=== PATIENT | male | born 1960 | race African-American/Black ===

== ENCOUNTER 2024-08-23 12:29 | Inpatient (IN) | payer MEDICAID, OTHER ==
[~2024-08-23] VITALS: Ht 172.7 cm; Wt 103.9 kg
[~2024-08-23 12:29] MED LIST: AMLO1TAB23 PO; ASPI81CH59 PO; CARV25TA55 PO; DAPA1TAB4 PO; FERR325T24 PO; LEVE500T40 PO; LOSA-535 PO; METF-370 PO; RIV20T PO; ROSU10TA16 PO; SENN8.6T83 PO
--- NOTE | 2024-08-23 14:13 | ED.PDOC ---
History of Present Illness HPI Comments 64 year old male ISHMAEL presents to the ED with chief complaint of possible skin infection. EMS reports patient is coming from home where family states patient's G-Tube site looks red and has been having drainage coming from it for the past few days. EMS relays patient has deficits to speech and movement from a previous CVA, feeding from his G-Tube. EMS states patient's glucose level was noted to be 267 and family state patient's glucose has been running high lately which is not normal for him. EMS notes family called patient's PCP who advised the to take the patient to the ED due to a possible infection. Patient denies any chest pain, fever, chills, dizziness, headache, or SOB. Chief Complaint: Wound Check Time Seen by MD: 14:10 Reviewed Notes: Nurses Notes, Salesperson Sewing Machines Notes, Medications, Allergies Allergies: Coded Allergies: NO KNOWN ALLERGIES (Unverified , 08/23/24) Information Source: Patient, Emergency Med Personnel Mode of Arrival: EMS Severity: Moderate Timing: Days Duration: Since onset Prehospital treatment: None Associated signs and symptoms Infected wound Past Medical History PAST MEDICAL HISTORY: CVA, DM, HTN, Seizures Surgical History (Other): G-Tube Family History Family History: Reviewed,noncontributory to illness Social History Smoker: Non-Smoker Alcohol: Denies ETOH Use Drugs: Denies Drug Use Lives In: Home Constitutional: denies: chills, diaphoresis, fatigue, fever, malaise, sweats, weakness, others EENTM: denies: blurred vision, double vision, ear bleeding, ear discharge, ear drainage, ear pain, ear ringing, eye pain, eye redness, hearing loss, mouth pain, mouth swelling, nasal discharge, nose bleeding, nose congestion, nose pain, photophobia, tearing, throat pain, throat swelling, voice changes, others Respiratory: denies: cough, hemoptysis, orthopnea, SOB at rest, shortness of breath, SOB with excertion, stridor, wheezing, others Cardiovascular: denies: chest pain, dizzy spells, diaphoresis, Dyspnea on ex ertion, edema, irregular heart beat, left arm pain, lightheadedness, palpitations, PND, syncope, others Gastrointestinal: denies: abdomen distended, abdominal pain, blood streaked bowels, constipated, diarrhea, dysphagia, difficulty swallowing, hematemesis, melena, nausea, poor appetite, poor fluid intake, rectal bleeding, rectal pain, vomiting, others Genitourinary: denies: burning, dysuria, flank pain, frequency, hematuria, incontinence, penile discharge, penile sore, pain, testicle pain, testicle swelling, urgency, others Neurological: denies: dizziness, fainting, headache, left sided numbness, left sided weakness, numbness, paresthesia, pre-existing deficit, right sided numbness, right sided weakness, seizure, speech problems, tingling, tremors, weakness, others Musculoskeletal: denies: back pain, gout, joint pain, joint swelling, muscle pain, muscle stiffness, neck pain, others Integumetry: reports: others (Redness and drainage to G-Tube site); denies: bruises, change in color, change in hair/nails, dryness, laceration, lesions, lumps, rash, wounds Allergic/Immunocompromised: denies: Difficulty Healing, Frequent Infections, Hives, Itching, others Hematologic/Lymphatic: denies: anemia, blood clots, easy bleeding, easy bruising, swollen glands, others Endocrine: denies: excessive hunger, excessive sweating, excessive thirst, excessive urination, flushing, intolerance to cold, intolerance to heat, unexplained weight gain, unexplained weight loss, others Psychiatric: denies: anxiety, bipolar disorder, depression, hopeless, panic disorder, schizophrenia, sleepless, suicidal, others All Other Systems: Reviewed and Negative Physical Exam General Appearance: Obese, Other (The patient was nonverbal) HEENT: Normal ENT Inspection, Pharynx Normal, TMs Normal Neck: Full Range of Motion, Non-Tender, Normal, Normal Inspection Respiratory: Chest Non-Tender, Lungs Clear, No Accessory Muscle Use, No Respiratory Distress, Normal Breath Sounds Cardiovascular: No Edema, No JVD, No Murmur, No Gallop, Normal Peripheral Pulses, Regular Rate/Rhythm Breast Exam: Deferred Gastrointestinal: No Organomegaly, No Pulsatile Mass, Normal Bowel Sounds, Soft, Other (G-tube in place with redness and some drainage around the area) Genitalia: Deferred Pelvic: Deferred Rectal: Deferred Extremities: No calf tenderness, Normal capillary refill, No pedal edema Musculoskeletal : Apperance: Normal Neurologic: magazine repairer II-XII nml as Tested, Motor Weakness, Other (The patient is nonverbal which may be his baseline) Cerebellar Function: Unable to Test Reflexes: Normal Skin: Dry, Normal Color, Warm Lymphatic: No Adenopathy Was a procedure done? Was a procedure done?: No Differential Dx Considerations may include: Generalized weakness, sepsis, dehydration X-Ray, Labs, Meds, VS Vital Signs Date Time Temp Pulse Resp B/P (MAP) Pulse Ox O2 Delivery O2 Flow Rate FiO2 08/23/24 14:00 98.3 78 18 137/63 (87) 97 98.3 08/23/24 12:40 98.8 90 18 132/75 (94) 97 Lab Test 08/23/24 15:03 Range/Units White Blood Count 9.6 4.4-10.8 10^3/uL Red Blood Count 3.98 L 4.5-5.90 10^6/uL Hemoglobin 12.5 L 13.5-17.5 g/dL Hematocrit 37.5 L 41.0-53.0 % Mean Corpuscular Volume 94.2 80.0-100.0 fL Mean Corpuscular Hemoglobin 31.5 28.0-32.0 pg Mean Corpuscular Hemoglobin Concent 33.4 32.0-36.0 g/dL Red Cell Distribution Width 13.4 11.8-14.3 % Platelet Count 340 140-450 10^3/uL Mean Platelet Volume 8.0 6.9-10.8 fL Neutrophils (%) (Auto) 75.7 37.0-80.0 % Lymphocytes (%) (Auto) 12.5 10.0-50.0 % Monocytes (%) (Auto) 10.6 0.0-12.0 % Eosinophils (%) (Auto) 0.7 0.0-7.0 % Basophils (%) (Auto) 0.5 0.0-2.0 % Neutrophils # (Auto) 7.2 1.6-8.6 10 ^3/uL Lymphocytes # (Auto) 1.2 0.4-5.4 10 ^3/uL Monocytes # (Auto) 1.0 0-1.3 10 ^3/uL Eosinophils # (Auto) 0.1 0-0.8 10 ^3/uL Basophils # (Auto) 0 0-0.2 10 ^3/uL Nucleated Red Blood Cells 0.1 % Sodium Level 134 L 136-145 mmol/L Potassium Level 5.2 H 3.5-5.1 mmol/L Chloride Level 103 98-107 mmol/L Carbon Dioxide Level 23 20-31 mmol/L Anion Gap 8 5-15 Blood Urea Nitrogen 24 H 9-23 mg/dL Creatinine 1.08 0.700-1.30 mg/dL Glomerular Filtration Rate Calc 78 >90 mL/min BUN/Creatinine Ratio 22.2 H 10.0-20.0 Serum Glucose 253 H 74-106 mg/dL Lactic Acid Level 1.7 0.4-2.0 mmol/L Calcium Level 9.5 8.7-10.4 mg/dL The patient's CBC is within normal limits The chemistry panel shows hyperkalemia at 5.2 The patient was hyperglycemic at 253 Lactic acid levels within normal range We did do blood cultures as well as wound cultures The patient was being admitted with a diagnosis of an infected wound site The wound seems to be fairly infective with tenderness in the area There is a concern of possible abscess as well Time of 1ST Reevaluation: 16:03 Reevaluation 1ST: Unchanged Patient Education/Counseling: Diagnosis, Treatment, Prognosis Family Education/Counseling: No Family Present Departure 1 Departure Time of Disposition: 16:02 Impression: Primary Impression: Skin infection at gastrostomy tube site Disposition: 09 ADMITTED INPATIENT Admit to: Med Surg Condition: Fair Critical Care Note Critical Care Time?: No Stability Stability form required: Yes Unstable for transfer: ED Physician Assesment (Clinical assesment) Heart Score Heart Score: Heart Score Response (Comments) Value History N/A 0 EKG N/A 0 Age N/A 0 Risk Factors N/A 0 Troponin N/A 0 Total 0 I personally scribed for JULIO PINEDO MD ([email or web address]) on 08/23/24 at 14:13. Electronically submitted by Arjnu Parsons ([email or web address]). JULIO PINEDO MD Aug 23, 2024 14:13
[2024-08-23 15:33] LABS: Basophils # (auto) 0 10 ^3/uL (0-0.2); Basophils % (auto) 0.5 % (0.0-2.0); Eosinophils # (auto) 0.1 10 ^3/uL (0-0.8); Eosinophils % (auto) 0.7 % (0.0-7.0); Hematocrit 37.5 % (41.0-53.0); Hemoglobin 12.5 g/dL (13.5-17.5); Lymphocytes # (auto) 1.2 10 ^3/uL (0.4-5.4); Lymphocytes % (auto) 12.5 % (10.0-50.0); Mean Corpuscular Hemoglobin 31.5 pg (28.0-32.0); Mean Corpuscular Hgb Conc. 33.4 g/dL (32.0-36.0); Mean Corpuscular Volume 94.2 fL (80.0-100.0); Monocytes % (auto) 10.6 % (0.0-12.0); Neutrophils # (auto) 7.2 10 ^3/uL (1.6-8.6); Neutrophils % (auto) 75.7 % (37.0-80.0); Nucleated Red Blood Cells % 0.1 %; Platelet Count (auto) 340 10^3/uL (140-450); Red Blood Cells 3.98 10^6/uL (4.5-5.90); Red Cell Distribution Width 13.4 % (11.8-14.3); White Blood Cell 9.6 10^3/uL (4.4-10.8)
[2024-08-23 15:43] LABS: Chloride 103 mmol/L (98-107)
[2024-08-23 15:44] LABS: Anion Gap 8 (5-15); Carbon Dioxide 23 mmol/L (20-31)
[2024-08-23 15:45] LABS: Calcium 9.5 mg/dL (8.7-10.4)
[2024-08-23 15:49] LABS: BUN/Creatinine Ratio 22.2 (10.0-20.0)
[2024-08-23 15:51] LABS: Blood Urea Nitrogen 24 mg/dL (9-23); Glucose 253 mg/dL (74-106); Potassium 5.2 mmol/L (3.5-5.1); Sodium 134 mmol/L (136-145)
[2024-08-23] MEDS ORDERED: DOCUSATE SOD 100 MG CAP PO PRN (18:00)
[2024-08-23] MEDS ORDERED: DEXTROSE (50%) 50ML SYRG IV PRN (18:00)
[2024-08-23] MEDS ORDERED: ONDANSETRON HCL 4 MG/2 ML VIAL IV PRN (18:00)
[2024-08-23] MEDS ORDERED: HYDROcodone-ACET 5/325MG TAB PO PRN (18:00)
[2024-08-23] MEDS: SODIUM CHLORIDE 0.9% 1,000 ML IV SCH (18:31)
[2024-08-23] MEDS: SODIUM ZIRCONIUM CYCL 10 GM PAK PO ONE (18:33)
[2024-08-23] MEDS ORDERED: NITROGLYCERIN 0.4 MG SL TAB SL PRN (19:00)
[2024-08-23] MEDS ORDERED: MORPHINE SULFATE INJ 2 MG/ml SYRG IV PRN (19:00)
--- NOTE | 2024-08-23 19:01 | DVHHP2 ---
History of Present Illness Reason for Visit: Skin infection at gastrostomy tube site History of Present Illness The patient is a 64-year-old male with past medical history of CVA with deficits, DM, seizures, and hypertension who presented to [facility] ED for evaluation of skin infection at G-tube site. Daughter reports she notice patient G-tube site looks rate and has been draining for the past few days, getting worse that EMS were called. Patient was seen and evaluated in the ED, laboratory data shows WBC 9.6, platelets 340, sodium 134, potassium 5.2, BUN 24, creatinine 1.08, GFR 78, glucose 253, blood pressure 154/85, heart rate 80, temperature 98.3 F, O2 saturation 98% on room air. Patient was started on IV antibiotic regimen Zosyn, please see medication orders section in the computer. On my assessment, patient denies chest pain, no headache, no dizziness, no diaphoresis, no shortness of breath, no nausea, no vomiting, no fever, no chil ls. Patient was admitted for further evaluation and medical management. Past Medical History CVA, DM, HTN, Seizures Past Surgical History G-Tube Family History Reviewed, noncontributory to the management of this case. Past Social History The patient lives at home, denies smoking, alcohol or illicit drugs abuse. Review of Systems Constitutional: Yes: Weakness; No: Fever, Chills, Sweats, Malaise, Other Eyes: No: Pain, Vision change, Conjunctivae inflammation, Eyelid inflammation, Other, Redness ENT: No: Ear pain, Ear discharge, Nose pain, Nose discharge, Nose congestion, Mouth pain, Mouth swelling, Throat pain, Throat swelling, Other Respiratory: No: Cough, Dry, Shortness of breath, SOB with excertion, Wheezing, Hemoptysis, Pleuritic Pain, Sputum, Wheezing, Other Cardiovascular: No: Chest Pain, Palpitations, Orthopnea, Paroxysmal Noc. Dyspnea, Edema, Lt Headedness, Other Gastrointestinal: No: Nausea, Vomiting, Abdominal Pain, Diarrhea, Constipation, Melena, Hematochezia, Other Genitourinary: No Dysuria, No Frequency, No Incontinence, No Hematuria, No Retention, No Other Musculoskeletal: other (Contractures); No: neck pain, shoulder pain, arm pain, back pain, hand pain, leg pain, foot pain Skin: Other (Redness and drainage to G-Tube site.); No: Rash, Lesions, Jaundice, Bruising Neurological: Weakness, Seizures (History); No: Numbness, Incoordination, Change in speech, Confusion, Other Allergies: Coded Allergies: NO KNOWN ALLERGIES (Unverified , 08/23/24) Medications Current Medications Medications Dose Ordered Sig/Antwon Route Start Time Stop Time Status Last Admin Dose Admin Atorvastatin Calcium 10 mg HS PO 08/23/24 22:00 Aspirin 81 mg DAILY PO 08/24/24 10:00 Levetiracetam 100 ml @ 400 mls/hr BID IV 08/23/24 22:00 Carvedilol 3.125 mg Q12HR PO 08/23/24 22:00 Diagnostic Test (Pha) 1 strip ACHS 08/23/24 22:00 Insulin Human Regular HS SC 08/23/24 22:00 Insulin Human Regular AC SC 08/24/24 07:00 Dextrose 50 ml UD PRN IV 08/23/24 18:00 Sodium Chloride 1,000 ml @ 60 mls/hr [id number] IV 08/23/24 18:00 Acetaminophen/ Hydrocodone Bitart 1 tab Q4HP PRN PO 08/23/24 18:00 Ondansetron HCl 4 mg Q4HP PRN IV 08/23/24 18:00 Docusate Sodium 100 mg BIDPRN PRN PO 08/23/24 18:00 Enoxaparin Sodium 40 mg DAILY SC 08/24/24 10:00 Acetaminophen 650 mg Q6HP PRN PO 08/23/24 18:00 Exam Vital Signs Vital Signs Date Time Temp Pulse Resp B/P (MAP) Pulse Ox O2 Delivery O2 Flow Rate FiO2 08/23/24 17:00 80 18 154/85 (108) 100 08/23/24 14:00 98.3 98.3 General Appearance: Alert, Cooperative, No acute distress, Other (Oriented x2) HEENT: Atraumatic, PERRLA, EOMI, Mucous membr. moist/pink Respiratory: Clear to auscultation, Normal air movement Cardiovascular: Regular rate, Normal S1, Normal S2, No murmurs Abdominal: Normal bowel sounds, Soft, No tenderness, No hepatospenomegaly, No masses, Other (G-tube is in place.) Extremities: Other (Contractures) Skin: No rashes, No breakdown, No significant lesion Neuro: Normal tone, Other (Generalized weakness) Psych/Mental Status: Mental status NL, Mood NL Labs/Xrays Labs Test 08/23/24 15:03 Range/Units White Blood Count 9.6 4.4-10.8 10^3/uL Red Blood Count 3.98 L 4.5-5.90 10^6/uL Hemoglobin 12.5 L 13.5-17.5 g/dL Hematocrit 37.5 L 41.0-53.0 % Mean Corpuscular Volume 94.2 80.0-100.0 fL Mean Corpuscular Hemoglobin 31.5 28.0-32.0 pg Mean Corpuscular Hemoglobin Concent 33.4 32.0-36.0 g/dL Red Cell Distribution Width 13.4 11.8-14.3 % Platelet Count 340 140-450 10^3/uL Mean Platelet Volume 8.0 6.9-10.8 fL Neutrophils (%) (Auto) 75.7 37.0-80.0 % Lymphocytes (%) (Auto) 12.5 10.0-50.0 % Monocytes (%) (Auto) 10.6 0.0-12.0 % Eosinophils (%) (Auto) 0.7 0.0-7.0 % Basophils (%) (Auto) 0.5 0.0-2.0 % Neutrophils # (Auto) 7.2 1.6-8.6 10 ^3/uL Lymphocytes # (Auto) 1.2 0.4-5.4 10 ^3/uL Monocytes # (Auto) 1.0 0-1.3 10 ^3/uL Eosinophils # (Auto) 0.1 0-0.8 10 ^3/uL Basophils # (Auto) 0 0-0.2 10 ^3/uL Nucleated Red Blood Cells 0.1 % Sodium Level 134 L 136-145 mmol/L Potassium Level 5.2 H 3.5-5.1 mmol/L Chloride Level 103 98-107 mmol/L Carbon Dioxide Level 23 20-31 mmol/L Anion Gap 8 5-15 Blood Urea Nitrogen 24 H 9-23 mg/dL Creatinine 1.08 0.700-1.30 mg/dL Glomerular Filtration Rate Calc 78 >90 mL/min BUN/Creatinine Ratio 22.2 H 10.0-20.0 Serum Glucose 253 H 74-106 mg/dL Lactic Acid Level 1.7 0.4-2.0 mmol/L Calcium Level 9.5 8.7-10.4 mg/dL Assessment/Plan Assessment/Plan Generalized weakness Skin infection at gastrostomy tube site Plan 1. Admit to med surge unit 2. Breathing treatment 3. Pain control management 4. IV antibiotic management 5. Management of fluids and electrolytes 6. Consultation for hospitalist/wound care 7. Diagnostic test chest x-ray 8. DVT prophylaxis-on aspirin 9. Repeat labs CBC, CMP in a.m. 10. Home medication reviewed and reconciled 11. Continue with current medical management 12. Treatment plan discussed with patient and RN. Patient verbalized underst anding. Plan discussed with: Patient, Other (RN) My Orders Orders - JOHANNE FULTON DNP Procedure Category Date Status Time Atorvastatin (Lipitor) PHA 08/23/24 In Process 22:00 Aspirin Tablet PHA 08/24/24 In Process 10:00 Levetiracetam 500 PHA 08/23/24 In Process Mg/100ml (Levetiraceta 22:00 Carvedilol Tablet PHA 08/23/24 In Process (Coreg Tablet) 22:00 Consistent DIET 08/23/24 Transmitted Carb(Ccho)Diabetes Dinner Glucose Blood PHA 08/23/24 In Process (Accu-Chek Comfort 22:00 Insulin R (Human) PHA 08/23/24 In Process (Insulin R) 22:00 Insulin R (Human) PHA 08/24/24 In Process (Insulin R) 07:00 Dextrose 50% Syringe PHA 08/23/24 In Process 18:00 Allergies RASHARD 08/23/24 In Process 17:49 Code Status CODE 08/23/24 Transmitted 17:49 Sodium Chloride 0.9% PHA 08/23/24 In Process 18:00 Oxygen Per Hour RT 08/23/24 Transmitted 17:49 Hydrocodone-Acet PHA 08/23/24 In Process 5/325mg Tab ([place] 18:00 Ondansetron Hcl PHA 08/23/24 In Process (Zofran) 18:00 Docusate Sodium PHA 08/23/24 In Process Capsule (Colace 18:00 Enoxaparin Sodium PHA 08/24/24 In Process (Lovenox) 10:00 Fall Risk Precautions RASHARD 08/23/[address] 17:49 Complete Blood Count LAB 08/24/24 Verified 04:00 Comprehensive LAB 08/24/24 Verified Metabolic Panel 04:00 Condition: Serious [facility] 08/23/24 In Process 17:49 Acetaminophen Tablet [facility] 08/23/24 In Process (Tylenol Tablet) 18:[address] [facility] 08/23/24 In Process Compression Device Admit ADMIT 08/23/24 Transmitted 18:58 Nitroglycerin [facility] 08/23/24 Transmitted Sublingual (Ntrostat 19:00 Morphine Sulfate [facility] 08/23/24 Transmitted Injection 19:[address] Md Of Changes [facility] 08/23/24 Transmitted From Base 18:58 Operations Officer [address] [facility] 08/23/24 Transmitted 24 Hours 18:[address] [facility] 08/23/24 Transmitted Protocol 18:58 Oxygen By Nasal RT 08/23/24 Transmitted Cannula 18:58 Problem List: (1) Generalized weakness (2) Skin infection at gastrostomy tube site Date of Service: Aug 23, 2024 Billing Provider: JOHANNE FULTON DNP Common Visit Codes: [id number] INP/OBS CARE (HIGH) JOHANNE FULTON DNP Aug 23, 2024 19:00
[2024-08-23] MEDS ORDERED: levETIRAcetam 500 mg/100ml 100 ML IV SCH (22:00)
[2024-08-23] MEDS: ACCU-CHEK COMFORT CURVE STRIP VI SCH (23:26)
[2024-08-23] MEDS: InsuLIN REG 1unit/0.01ml Soln (100units/ml) SC SCH (23:28)
[2024-08-24] VITALS (7 sets, daily range): BP systolic 120–140; BP diastolic 69–78; PULSE 85–100; RESP 16–20; TEMP 97.9–98.8; O2SAT 95–97
[2024-08-24] MEDS: PIPERACILLIN-TAZOB 3.375GM 100 ML IV SCH (00:05)
[2024-08-24] MEDS: CARVEDILOL 3.125 MG TAB PO SCH (00:13)
[2024-08-24] MEDS: ATORVASTATIN 20 MG TAB PO SCH (00:14)
[2024-08-24] MEDS: levETIRAcetam 500 mg/100ml 100 ML IV SCH (01:50)
[2024-08-24] MEDS: InsuLIN REG 1unit/0.01ml Soln (100units/ml) SC SCH (06:40)
[2024-08-24 06:55] LABS: Basophils # (auto) 0 10 ^3/uL (0-0.2); Basophils % (auto) 0.3 % (0.0-2.0); Eosinophils # (auto) 0 10 ^3/uL (0-0.8); Eosinophils % (auto) 0.5 % (0.0-7.0); Hematocrit 38.2 % (41.0-53.0); Hemoglobin 12.8 g/dL (13.5-17.5); Lymphocytes # (auto) 1.3 10 ^3/uL (0.4-5.4); Lymphocytes % (auto) 14.4 % (10.0-50.0); Mean Corpuscular Hemoglobin 31.2 pg (28.0-32.0); Mean Corpuscular Hgb Conc. 33.5 g/dL (32.0-36.0); Monocytes # (auto) 0.9 10 ^3/uL (0-1.3); Monocytes % (auto) 10.7 % (0.0-12.0); Neutrophils # (auto) 6.5 10 ^3/uL (1.6-8.6); Neutrophils % (auto) 74.1 % (37.0-80.0); Nucleated Red Blood Cells % 0.1 %; Platelet Count (auto) 377 10^3/uL (140-450); Red Cell Distribution Width 13.6 % (11.8-14.3); White Blood Cell 8.7 10^3/uL (4.4-10.8)
[2024-08-24 07:08] LABS: Alanine Aminotransferase 28 U/L (7-40); Albumin 3.7 g/dL (3.2-4.8); Alkaline Phosphatase 91 U/L (46-116); Anion Gap 7 (5-15); Aspartate Aminotransferase 21 U/L (13-40); BUN/Creatinine Ratio 31.3 (10.0-20.0); Bilirubin, Total 0.4 mg/dL (0.2-1.0); Calcium 9.7 mg/dL (8.7-10.4); Carbon Dioxide 24 mmol/L (20-31); Chloride 104 mmol/L (98-107); Potassium 5.1 mmol/L (3.5-5.1)
[2024-08-24 07:12] LABS: Blood Urea Nitrogen 30 mg/dL (9-23); Glucose 238 mg/dL (74-106); Sodium 135 mmol/L (136-145)
[2024-08-24] MEDS ORDERED: ENOXAPARIN SOD 40 MG/0.4 ML SYRINGE SC SCH (10:00)
[2024-08-24] MEDS: CLOPIDOGREL BISULFATE 75 MG TAB PO SCH (10:09)
[2024-08-24] MEDS: ASPirin 81 mg TAB PO SCH (10:09)
--- NOTE | 2024-08-24 11:49 | DVHPN2 ---
Subjective The patient is seen and examined at bedside. No complaint today. Reviewed: Care Plan, H&P, Labs, Medications, Previous Orders Changes from previous H/P or p: No Changes Eyes: No Pain, No Vision change, No Conjunctivae inflammation, No Eyelid inflammation, No Other, No Redness ENT: No Ear pain, No Ear discharge, No Nose pain, No Nose discharge, No Nose congestion, No Mouth pain, No Mouth swelling, No Throat pain, No Throat swelling, No Other Cardiovascular: No Chest Pain, No Palpitations, No Orthopnea, No Paroxysmal Noc. Dyspnea, No Edema, No Lt Headedness, No Other Respiratory: No Cough, No Dry, No Shortness of breath, No SOB with excertion, No Wheezing, No Hemoptysis, No Pleuritic Pain, No Sputum, No Other Gastrointestinal: No Nausea, No Vomiting, No Abdominal Pain, No Diarrhea, No Constipation, No Melena, No Hematochezia, No Other Genitourinary: No Dysuria, No Frequency, No Incontinence, No Hematuria, No Retention, No Other Musculoskeletal: other (Contractures); No neck pain, No shoulder pain, No arm pain, No back pain, No hand pain, No leg pain, No foot pain Skin: No Rash, No Lesions, No Jaundice, No Bruising; Other (Redness and drainage to G-Tube site.) Objective Vitals Vital Signs Date Time Temp Pulse Resp B/P (MAP) Pulse Ox O2 Delivery O2 Flow Rate FiO2 08/24/24 10:08 88 131/70 08/24/24 09:00 98.8 16 95 98.8 Intake/Output Intake and Output 08/24/24 07:00 Intake Total 100 ml Balance 100 ml Intake Oral 0 ml IV Total 100 ml # Voids 3 General Appearance: Alert, No acute distress HEENT: Atraumatic, PERRLA, EOMI, Mucous membr. moist/pink Neck: Supple Lungs: Clear to auscultation, Normal air movement Cardiovascular: Regular rate, Normal S1, Normal S2, No murmurs, Gallops, Rubs Abdomen: Normal bowel sounds, Soft, No tenderness Neuro: Cranial nerves 3-12 NL Psych/Mental Status: Mental status NL Medications Current Medications Medications Dose Ordered Sig/Antwon Route Start Time Stop Time Status Last Admin Dose Admin Atorvastatin Calcium 10 mg HS PO 08/23/24 22:00 08/24/24 00:14 10 MG Aspirin 81 mg DAILY PO 08/24/24 10:00 08/24/24 10:09 81 MG Carvedilol 3.125 mg Q12HR PO 08/23/24 22:00 08/24/24 10:08 3.125 MG Diagnostic Test (Pha) 1 strip ACHS 08/23/24 22:00 08/24/24 06:36 1 STRIP Insulin Human Regular HS SC 08/23/24 22:00 08/23/24 23:28 8 UNITS Insulin Human Regular AC SC 08/24/24 07:00 08/24/24 06:40 6 UNITS Dextrose 50 ml UD PRN IV 08/23/24 18:00 Sodium Chloride 1,000 ml @ 60 mls/hr [id number] IV 08/23/24 18:00 Acetaminophen/ Hydrocodone Bitart 1 tab Q4HP PRN PO 08/23/24 18:00 Ondansetron HCl 4 mg Q4HP PRN IV 08/23/24 18:00 Docusate Sodium 100 mg BIDPRN PRN PO 08/23/24 18:00 Acetaminophen 650 mg Q6HP PRN PO 08/23/24 18:00 Nitroglycerin 0.4 mg Q5MINP PRN SL 08/23/24 19:00 Morphine Sulfate 2 mg Q30M PRN IV 08/23/24 19:00 Piperacillin Sod/ Tazobactam Sod 100 ml @ 25 mls/hr Q8HR IV 08/23/24 22:00 08/24/24 06:45 25 MLS/HR Clopidogrel Bisulfate 75 mg DAILY PO 08/24/24 10:00 08/24/24 10:09 75 MG Levetiracetam 100 ml @ 400 mls/hr BID IV 08/24/24 01:34 08/24/24 10:09 400 MLS/HR Laboratory Results Laboratory Tests 08/24/24 06:10 Chemistry Test 08/23/24 15:03 08/24/24 06:10 Calcium Level 9.5 mg/dL (8.7-10.4) 9.7 mg/dL (8.7-10.4) Albumin 3.7 g/dL (3.2-4.8) Total Protein 7.0 g/dL (5.7-8.2) LFT Test 08/24/24 06:10 Alanine Aminotransferase (ALT) 28 U/L (7-40) Alkaline Phosphatase 91 U/L (46-116) Aspartate Amino Transferase (AST) 21 U/L (13-40) Total Bilirubin 0.4 mg/dL (0.2-1.0) Labs and/or images reviewed: Labs reviewed by me Assessment/Plan Assessment/Plan Generalized weakness Cellulitis at gastrostomy tube site Continue current management. Continue IV antibiotic. Will resume isosourse TF. This medical document was created using an electronic medical record system with [employer] computerized dictation system. Although this document has been carefully reviewed, there may still be some phonetic and typographical errors. These areas are purely typographical due to imperfections of the software programs, and do not reflect any compromise in the patient's medical care. Plan discussed with: Other (RN) Date of Service: Aug 24, 2024 Billing Provider: ADRIANNA TRAVIS MD Common Visit Codes: [id number] INP/OBS CARE(HIGH) ADRIANNA TRAVIS MD Aug 24, 2024 11:49
[2024-08-24] MEDS ORDERED: HYDROcodone-ACET 5/325MG TAB GT PRN (21:15)
[2024-08-24] MEDS: CARVEDILOL 3.125 MG TAB GT SCH (22:00)
[2024-08-24] MEDS: ATORVASTATIN 20 MG TAB GT SCH (23:02)
[2024-08-25 01:00] VITALS: BP 138/79; PULSE 102; RESP 16; TEMP 98.2; O2SAT 97
[2024-08-25 05:00] VITALS: BP 123/68; PULSE 109; RESP 18; O2SAT 92
[2024-08-25] MEDS: Glucerna Carbsteady SHAKE Vanilla 8oz GT SCH (08:00)
--- NOTE | 2024-08-25 08:24 | DVHPN2 ---
Subjective The patient is seen and examined at bedside. No complaint today. Per nursing reports that is some black element come out of the G-tube, questionable mold Reviewed: Care Plan, H&P, Labs, Medications, Previous Orders Changes from previous H/P or p: No Changes Eyes: No Pain, No Vision change, No Conjunctivae inflammation, No Eyelid inflammation, No Other, No Redness ENT: No Ear pain, No Ear discharge, No Nose pain, No Nose discharge, No Nose congestion, No Mouth pain, No Mouth swelling, No Throat pain, No Throat swelling, No Other Cardiovascular: No Chest Pain, No Palpitations, No Orthopnea, No Paroxysmal Noc. Dyspnea, No Edema, No Lt Headedness, No Other Respiratory: No Cough, No Dry, No Shortness of breath, No SOB with excertion, No Wheezing, No Hemoptysis, No Pleuritic Pain, No Sputum, No Other Gastrointestinal: No Nausea, No Vomiting, No Abdominal Pain, No Diarrhea, No Constipation, No Melena, No Hematochezia, No Other Genitourinary: No Dysuria, No Frequency, No Incontinence, No Hematuria, No Retention, No Other Musculoskeletal: other (Contractures); No neck pain, No shoulder pain, No arm pain, No back pain, No hand pain, No leg pain, No foot pain Skin: No Rash, No Lesions, No Jaundice, No Bruising; Other (Redness and drainage to G-Tube site.) Objective Vitals Vital Signs Date Time Temp Pulse Resp B/P (MAP) Pulse Ox O2 Delivery O2 Flow Rate FiO2 08/25/24 05:00 109 18 123/68 (86) 92 08/25/24 01:00 98.2 98.2 08/24/24 20:00 Room Air* 0 21 Intake/Output Intake and Output 08/25/24 07:00 Intake Total 920 ml Output Total 1 ml Balance 919 ml Intake Oral 0 ml IV Total 920 ml Output Urine Total 1 ml # Voids 3 General Appearance: Alert, No acute distress HEENT: Atraumatic, PERRLA, EOMI, Mucous membr. moist/pink Neck: Supple Lungs: Clear to auscultation, Normal air movement Cardiovascular: Regular rate, Normal S1, Normal S2, No murmurs, Gallops, Rubs Abdomen: Normal bowel sounds, Soft, No tenderness Neuro: Cranial nerves 3-12 NL Psych/Mental Status: Mental status NL Medications Current Medications Medications Dose Ordered Sig/Antwon Route Start Time Stop Time Status Last Admin Dose Admin Diagnostic Test (Pha) 1 strip ACHS 08/23/24 22:00 08/25/24 06:42 1 STRIP Insulin Human Regular HS SC 08/23/24 22:00 08/23/24 23:28 8 UNITS Insulin Human Regular AC SC 08/24/24 07:00 08/24/24 06:40 6 UNITS Dextrose 50 ml UD PRN IV 08/23/24 18:00 Sodium Chloride 1,000 ml @ 60 mls/hr [id number] IV 08/23/24 18:00 08/25/24 03:20 60 MLS/HR Ondansetron HCl 4 mg Q4HP PRN IV 08/23/24 18:00 Docusate Sodium 100 mg BIDPRN PRN PO 08/23/24 18:00 Acetaminophen 650 mg Q6HP PRN PO 08/23/24 18:00 Nitroglycerin 0.4 mg Q5MINP PRN SL 08/23/24 19:00 Morphine Sulfate 2 mg Q30M PRN IV 08/23/24 19:00 Piperacillin Sod/ Tazobactam Sod 100 ml @ 25 mls/hr Q8HR IV 08/23/24 22:00 08/25/24 05:39 25 MLS/HR Levetiracetam 100 ml @ 400 mls/hr BID IV 08/24/24 01:34 08/24/24 23:02 400 MLS/HR Enteral Nutritional Formula 240 ml TIDWM GT 08/25/24 08:00 Aspirin 81 mg DAILY GT 08/25/24 10:00 Atorvastatin Calcium 10 mg HS GT 08/24/24 22:00 08/24/24 23:02 10 MG Carvedilol 3.125 mg Q12HR GT 08/24/24 22:00 08/24/24 22:00 3.125 MG Clopidogrel Bisulfate 75 mg DAILY GT 08/25/24 10:00 Acetaminophen/ Hydrocodone Bitart 1 tab Q4HP PRN GT 08/24/24 21:15 Laboratory Results Laboratory Tests 08/24/24 06:10 Microbiology Microbiology Date/Time Source Procedure Growth Status 08/23/24 15:03 Blood Blood Culture - Preliminary NO GROWTH AFTER 24 HOURS OF INCUBATION. Resulted Labs and/or images reviewed: Labs reviewed by me Assessment/Plan Assessment/Plan Generalized weakness Cellulitis at gastrostomy tube site with ? mold. Continue current management. Continue IV antibiotic. Will resume isosourse TF. I will put in a GI consulted to evaluate the G-tube. We will culture the wound. Continuing wound care. This medical document was created using an electronic medical record system with [employer] direct computerized dictation system. Although this document has been carefully reviewed, there may still be some phonetic and typographical errors. These areas are purely typographical due to imperfections of the software programs, and do not reflect any compromise in the patient's medical care. Plan discussed with: Other (RN) My Orders Orders - ADRIANNA TRAVIS MD Procedure Category Date Status Time Wound Culture W/ Gs SUPRIYA 08/24/24 Logged 13:14 Cleanse Wound With RASHARD 08/24/24 In Process Wound Clean 10:20 Apply Barrier Cream RASHARD 08/24/24 In Process 13:16 * Dietary Consult CONS 08/24/24 Transmitted 13:18 Date of Service: Aug 25, 2024 Billing Provider: ADRIANNA TRAVIS MD Common Visit Codes: [id number] INP/OBS CARE(HIGH) ADRIANNA TRAVIS MD Aug 25, 2024 08:24
[2024-08-25 09:00] VITALS: BP 154/72; PULSE 112; RESP 18; O2SAT 94
[2024-08-25] MEDS: ASPirin 81 mg TAB GT SCH (09:36)
[2024-08-25] MEDS: CLOPIDOGREL BISULFATE 75 MG TAB GT SCH (09:37)
[2024-08-25 13:00] VITALS: BP 134/75; PULSE 103; RESP 18; O2SAT 93
[2024-08-25] MEDS: ACETAMINOPHEN 325 MG TAB PO PRN (14:17)
[2024-08-25 17:00] VITALS: BP_SYST 104; BP_SYST 133; BP_DIAS 63; BP_DIAS 69; PULSE 102; PULSE 74; RESP 18; TEMP 98.1; O2SAT 94; O2SAT 97
[2024-08-25 21:00] VITALS: BP 138/70; PULSE 100; RESP 18; TEMP 98.2; O2SAT 98
[2024-08-26 01:00] VITALS: BP 134/82; PULSE 101; RESP 18; O2SAT 98
[2024-08-26 05:00] VITALS: BP 148/73; PULSE 107; RESP 18; O2SAT 98
[2024-08-26 09:00] VITALS: BP 155/71; PULSE 78; RESP 16; TEMP 98.4; O2SAT 98
[2024-08-26 09:13] LABS: Anion Gap 9 (5-15); Carbon Dioxide 22 mmol/L (20-31); Potassium 4.4 mmol/L (3.5-5.1); Sodium 143 mmol/L (136-145)
[2024-08-26 09:15] LABS: Calcium 9.5 mg/dL (8.7-10.4)
[2024-08-26 09:18] LABS: Basophils # (auto) 0.1 10 ^3/uL (0-0.2); Basophils % (auto) 0.7 % (0.0-2.0); Eosinophils # (auto) 0.1 10 ^3/uL (0-0.8); Eosinophils % (auto) 0.6 % (0.0-7.0); Hematocrit 33.2 % (41.0-53.0); Hemoglobin 10.4 g/dL (13.5-17.5); Lymphocytes # (auto) 1.7 10 ^3/uL (0.4-5.4); Lymphocytes % (auto) 18.2 % (10.0-50.0); Mean Corpuscular Hemoglobin 32.2 pg (28.0-32.0); Mean Corpuscular Hgb Conc. 31.4 g/dL (32.0-36.0); Mean Corpuscular Volume 102.6 fL (80.0-100.0); Monocytes # (auto) 1.3 10 ^3/uL (0-1.3); Monocytes % (auto) 13.4 % (0.0-12.0); Neutrophils # (auto) 6.4 10 ^3/uL (1.6-8.6); Neutrophils % (auto) 67.1 % (37.0-80.0); Nucleated Red Blood Cells % 0.1 %; Platelet Count (auto) 364 10^3/uL (140-450); Red Blood Cells 3.24 10^6/uL (4.5-5.90); Red Cell Distribution Width 14.5 % (11.8-14.3); White Blood Cell 9.5 10^3/uL (4.4-10.8)
[2024-08-26 09:19] LABS: Chloride 112 mmol/L (98-107)
[2024-08-26 09:22] LABS: BUN/Creatinine Ratio 21.1 (10.0-20.0); Blood Urea Nitrogen 26 mg/dL (9-23); Glucose 198 mg/dL (74-106)
--- NOTE | 2024-08-26 11:00 | DVHINCON2 ---
Date of service: Aug 26, 2024 Referring Physician Justus Mcgee Reason for Consultation Possible GT cellulitis History of Present Illness The patient is a 64-year-old male with past medical history of CVA with deficits, DM, seizures, and hypertension who presented to [facility] ED for evaluation of skin infection at G-tube site. Daughter reports she notice patient G-tube site looks rate and has been draining for the past few days, getting worse that EMS were called. Patient was seen and evaluated in the ED, laboratory data shows WBC 9.6, platelets 340, sodium 134, potassium 5.2, BUN 24, creatinine 1.08, GFR 78, glucose 253, blood pressure 154/85, heart rate 80, temperature 98.3 F, O2 saturation 98% on room air. Patient was started on IV antibiotic regimen Zosyn, Was seen at bedside. Today the G-tube site looks fairly clean except for some granulation tissue. There was no discharge at this time. Patient is on IV antibiotics. Past Medical History Past Medical History CVA, DM, HTN, Seizures Past Surgical History Past Surgical History G-Tube Allergies: Coded Allergies: NO KNOWN ALLERGIES (Unverified , 08/23/24) Home Meds Reported Medications Aspirin (Aspirin Low Dose) 81 Mg Chw, 1 TAB PO DAILY for 90 Days, #90 24 Rivaroxaban (Xarelto Tablet) 20 Mg Tb, 10 MG PO DAILY for 90 Days, #90 24 Amlodipine Besylate (Amlodipine Besylate) 10 Mg Tab, 1 TAB PO DAILY for 90 Days, #90 24 Losartan Potassium (Losartan Potassium) 100 Mg Tab, 1 TAB PO BID for 90 Days, #180 24 Rosuvastatin Calcium (Crestor) 10 Mg Tab, 1 TAB PO DAILY for 90 Days, #90 24 Ferrous Sulfate (Ferrous Sulfate) 325 Mg Tab, 1 TAB PO DAILY for 90 Days, #90 24 Metformin Hydrochloride (Metformin Hcl) 500 Mg Tab, 1 TAB PO DAILY for 90 Days, #90 24 Dapagliflozin Propanediol (Farxiga) 10 Mg Tab, 5 MG PO DAILY for 30 Days, #30 24 Carvedilol (Carvedilol) 25 Mg Tab, 1 TAB PO BID for 30 Days, #60 24 Senna (Senna-Time) 8.6 Mg Tab, 2 TAB PO DAILY for 90 Days, #180 08/24/24 Levetiracetam (Keppra) 500 Mg Tab, 1 TAB PO BID for 90 Days, #180 08/24/24 Vital Signs Vital Signs Date Time Temp Pulse Resp B/P (MAP) Pulse Ox O2 Delivery O2 Flow Rate FiO2 08/26/24 05:00 107 18 148/73 (98) 98 08/25/24 21:00 98.2 98.2 08/25/24 20:00 Room Air* 0 21 Physical Exam General Appearance: Alert, Cooperative, No acute distress, Other (Oriented x2) HEENT: Atraumatic, PERRLA, EOMI, Mucous membr. moist/pink Respiratory: Clear to auscultation, Normal air movement Cardiovascular: Regular rate, Normal S1, Normal S2, No murmurs Abdominal: Normal bowel sounds, Soft, No tenderness, No hepatospenomegaly, No masses, Other (G-tube is in place.) Extremities: Other (Contractures) Skin: No rashes, No breakdown, No significant lesion Neuro: Normal tone, Other (Generalized weakness) Psych/Mental Status: Mental status NL, Mood NL Labs/Diagnostic Data Labs Test 08/26/24 08:00 08/25/24 22:19 08/24/24 06:10 08/23/24 15:03 Range/Units White Blood Count 9.5 4.4-10.8 10^3/uL Red Blood Count 3.24 L 4.5-5.90 10^6/uL Hemoglobin 10.4 #L 13.5-17.5 g/dL Hematocrit 33.2 #L 41.0-53.0 % Mean Corpuscular Volume 102.6 #H 80.0-100.0 fL Mean Corpuscular Hemoglobin 32.2 H 28.0-32.0 pg Mean Corpuscular Hemoglobin Concent 31.4 L 32.0-36.0 g/dL Red Cell Distribution Width 14.5 H 11.8-14.3 % Platelet Count 364 140-450 10^3/uL Mean Platelet Volume 7.6 6.9-10.8 fL Neutrophils (%) (Auto) 67.1 37.0-80.0 % Lymphocytes (%) (Auto) 18.2 10.0-50.0 % Monocytes (%) (Auto) 13.4 H 0.0-12.0 % Eosinophils (%) (Auto) 0.6 0.0-7.0 % Basophils (%) (Auto) 0.7 0.0-2.0 % Neutrophils # (Auto) 6.4 1.6-8.6 10 ^3/uL Lymphocytes # (Auto) 1.7 0.4-5.4 10 ^3/uL Monocytes # (Auto) 1.3 0-1.3 10 ^3/uL Eosinophils # (Auto) 0.1 0-0.8 10 ^3/uL Basophils # (Auto) 0.1 0-0.2 10 ^3/uL Nucleated Red Blood Cells 0.1 % Sodium Level 143 # 136-145 mmol/L Potassium Level 4.4 3.5-5.1 mmol/L Chloride Level 112 H 98-107 mmol/L Carbon Dioxide Level 22 20-31 mmol/L Anion Gap 9 5-15 Blood Urea Nitrogen 26 H 9-23 mg/dL Creatinine 1.23 0.700-1.30 mg/dL Glomerular Filtration Rate Calc 66 >90 mL/min BUN/Creatinine Ratio 21.1 H 10.0-20.0 Serum Glucose 198 H 74-106 mg/dL Calcium Level 9.5 8.7-10.4 mg/dL POC Glucose 186 H 70-106 mg/dl Total Bilirubin 0.4 0.2-1.0 mg/dL Aspartate Amino Transferase (AST) 21 13-40 U/L Alanine Aminotransferase (ALT) 28 7-40 U/L Alkaline Phosphatase 91 46-116 U/L Total Protein 7.0 5.7-8.2 g/dL Albumin 3.7 3.2-4.8 g/dL Lactic Acid Level 1.7 0.4-2.0 mmol/L Microbiology Date/Time Source Procedure Growth Status 08/24/24 12:55 Abdomen Gram Stain - Final Resulted 08/24/24 12:55 Abdomen Wound Culture - Preliminary Resulted 08/23/24 15:03 Blood Blood Culture - Preliminary NO GROWTH AFTER 48 HOURS OF INCUBATION. Resulted Problems(with codes): (1) Generalized weakness (2) Skin infection at gastrostomy tube site Plan/Recommendation Assessment plan At this time the G-tube appears to be in good place and there was no discharge in the redness appears to be resolving I have instructed the nurse to resume his G-tube feedings Continue IV antibiotics and then patient can be discharged home on oral Keflex Cleaned G-tube site with dilute hydrogen peroxide and saline twice a day and rotate G-tube twice a day Patient already has the largest sized G-tube in place Plan discussed with: Patient, Other (Nurse) SHER SAINZ MD Aug 26, 2024 11:00
[2024-08-26 13:00] VITALS: BP 140/73; PULSE 99; RESP 18; TEMP 98; O2SAT 98
--- NOTE | 2024-08-26 13:48 | DVHPN2 ---
Subjective Patient was aphasic Reviewed: Care Plan, H&P, Labs, Medications, Previous Orders Changes from previous H/P or p: No Changes General: Per HPI Eyes: No Pain, No Vision change, No Conjunctivae inflammation, No Eyelid inflammation, No Other, No Redness ENT: No Ear pain, No Ear discharge, No Nose pain, No Nose discharge, No Nose congestion, No Mouth pain, No Mouth swelling, No Throat pain, No Throat swelling, No Other Cardiovascular: No Chest Pain, No Palpitations, No Orthopnea, No Paroxysmal Noc. Dyspnea, No Edema, No Lt Headedness, No Other Respiratory: No Cough, No Dry, No Shortness of breath, No SOB with excertion, No Wheezing, No Hemoptysis, No Pleuritic Pain, No Sputum, No Other Gastrointestinal: No Nausea, No Vomiting, No Abdominal Pain, No Diarrhea, No Constipation, No Melena, No Hematochezia, No Other Genitourinary: No Dysuria, No Frequency, No Incontinence, No Hematuria, No Retention, No Other Musculoskeletal: other (Contractures); No neck pain, No shoulder pain, No arm pain, No back pain, No hand pain, No leg pain, No foot pain Skin: No Rash, No Lesions, No Jaundice, No Bruising; Other (Redness and drainage to G-Tube site.) Objective Vitals Vital Signs Date Time Temp Pulse Resp B/P (MAP) Pulse Ox O2 Delivery O2 Flow Rate FiO2 08/26/24 11:02 78 155/71 08/26/24 05:00 18 98 08/25/24 21:00 98.2 98.2 08/25/24 20:00 Room Air* 0 21 Intake/Output Intake and Output 08/26/24 07:00 Intake Total 2528 ml Output Total 1400 ml Balance 1128 ml Intake Oral 1508 ml IV Total 1020 ml Output Urine Total 1400 ml Stool Total 0 ml # Voids 4 General Appearance: Alert, No acute distress HEENT: Atraumatic, PERRLA, EOMI, Mucous membr. moist/pink Neck: Supple Lungs: Clear to auscultation, Normal air movement Cardiovascular: Regular rate, Normal S1, Normal S2, No murmurs, Gallops, Rubs Abdomen: Normal bowel sounds, Soft, No tenderness, Other (G-tube site clean dry and intact) Neuro: Cranial nerves 3-12 NL Psych/Mental Status: Mental status NL Medications Current Medications Medications Dose Ordered Sig/Antwon Route Start Time Stop Time Status Last Admin Dose Admin Diagnostic Test (Pha) 1 strip ACHS 08/23/24 22:00 08/26/24 11:52 1 STRIP Insulin Human Regular HS SC 08/23/24 22:00 08/25/24 22:25 3 UNITS Insulin Human Regular AC SC 08/24/24 07:00 08/26/24 12:10 3 UNITS Dextrose 50 ml UD PRN IV 08/23/24 18:00 Ondansetron HCl 4 mg Q4HP PRN IV 08/23/24 18:00 Docusate Sodium 100 mg BIDPRN PRN PO 08/23/24 18:00 Acetaminophen 650 mg Q6HP PRN PO 08/23/24 18:00 08/25/24 14:17 650 MG Nitroglycerin 0.4 mg Q5MINP PRN SL 08/23/24 19:00 Morphine Sulfate 2 mg Q30M PRN IV 08/23/24 19:00 Piperacillin Sod/ Tazobactam Sod 100 ml @ 25 mls/hr Q8HR IV 08/23/24 22:00 08/26/24 05:45 25 MLS/HR Levetiracetam 100 ml @ 400 mls/hr BID IV 08/24/24 01:34 08/26/24 11:02 400 MLS/HR Enteral Nutritional Formula 240 ml TIDWM GT 08/25/24 08:00 Hold 08/25/24 13:00 240 ML Aspirin 81 mg DAILY GT 08/25/24 10:00 08/26/24 11:02 81 MG Atorvastatin Calcium 10 mg HS GT 08/24/24 22:00 08/25/24 22:00 10 MG Carvedilol 3.125 mg Q12HR GT 08/24/24 22:00 08/26/24 11:02 3.125 MG Clopidogrel Bisulfate 75 mg DAILY GT 08/25/24 10:00 08/26/24 11:02 75 MG Acetaminophen/ Hydrocodone Bitart 1 tab Q4HP PRN GT 08/24/24 21:15 Pantoprazole Sodium 40 mg DAILY IV 08/27/24 10:00 UNV Enteral Nutritional Formula 240 ml QID GT 08/26/24 18:00 UNV Purified Water 100 ml Q6HR GT 08/26/24 18:00 UNV Laboratory Results Laboratory Tests 08/26/24 08:00 Chemistry Test 08/26/24 08:00 Calcium Level 9.5 mg/dL (8.7-10.4) Microbiology Microbiology Date/Time Source Procedure Growth Status 08/24/24 12:55 Abdomen Gram Stain - Final Resulted 08/24/24 12:55 Wound Culture - Preliminary Staphylococcus aureus Resulted 08/23/24 15:03 Blood Blood Culture - Preliminary NO GROWTH AFTER 48 HOURS OF INCUBATION. Resulted Labs and/or images reviewed: Labs reviewed by me, Image(s) reviewed by me Assessment/Plan Assessment/Plan Impression: -infected G-tube site with Staphylococcus aureus -rule out peptic ulcer disease -history of CVA -obesity -diabetes mellitus -seizure disorder Plan: -GI consultation: Recommendations reviewed -start tube feedings with Glucerna 1.2, for bottles a day. Start free water -continue Plavix and aspirin -start Protonix 40 mg IV daily -regular insulin sliding scale -repeat H&H tomorrow -continue antibiotic therapy with Zosyn -plan of care discussed with the patient's daughter. All questions answered. Tentative discharge tomorrow Total time spent with patient discussing and formulating plan of care: 35 minutes. This medical document was created using an electronic medical record system with [employer] dictation system. Although this document has been carefully reviewed, there may still be some phonetic and typographical errors. These areas are purely typographical due to imperfections of the software programs, and do not reflect any compromise in the patient's medical care. Plan discussed with: Patient, Other (RN) My Orders Orders - TOM VACA NP Procedure Category Date Status Time Hemoglobin & LAB 08/27/24 Verified Hematocrit 04:00 Pantoprazole PHA 08/26/24 Logged (Protonix) 13:45 Pantoprazole PHA 08/27/24 Logged (Protonix) 10:00 Nutritional PHA 08/26/24 Transmitted Supplements (Glucerna 18:00 Free Water PHA 08/26/24 Transmitted 18:00 Date of Service: Aug 26, 2024 Billing Provider: TOM VACA NP Common Visit Codes: [id number] INP/OBS CARE(HIGH) TOM VACA NP Aug 26, 2024 13:48
[2024-08-26] MEDS: PANTOPRAZOLE 40 MG/10 ML VIAL INJ IV ONE (16:57)
[2024-08-26 17:00] VITALS: BP 133/79; PULSE 96; RESP 16; TEMP 97.8; O2SAT 9
[2024-08-26] MEDS: FREE WATER GT SCH (18:03)
[2024-08-26] MEDS: Glucerna Carbsteady SHAKE Vanilla 8oz GT SCH (18:03)
[2024-08-26 21:00] VITALS: BP 148/76; PULSE 97; RESP 18; TEMP 99.9; O2SAT 97
[2024-08-27 01:00] VITALS: BP 146/75; PULSE 91; RESP 16; TEMP 98.5; O2SAT 96
[2024-08-27 05:00] VITALS: BP 130/62; PULSE 81; RESP 16; TEMP 98.1; O2SAT 97
[2024-08-27] MEDS: PANTOPRAZOLE 40 MG/10 ML VIAL INJ IV SCH (05:30)
[2024-08-27] MEDS ORDERED: ENSURE CLEAR Apple 8oz Carton PO SCH (06:00)
[2024-08-27 07:53] LABS: Hematocrit 30.9 % (41.0-53.0); Hemoglobin 10.2 g/dL (13.5-17.5)
[2024-08-27 09:00] VITALS: BP 146/69; PULSE 86; RESP 17; TEMP 98.9; O2SAT 93
[2024-08-27] MEDS ORDERED: AUG875T PO (12:36)
[2024-08-27] MEDS ORDERED: PANT40TA2 GT (12:36)
--- NOTE | 2024-08-27 12:47 | DVHDS2 ---
Discharge Summary Date of Admission Aug 23, 2024 at 18:58 Date of Discharge: Aug 27, 2024 Admitting Diagnosis Cellulitis to G-tube insertion site Labs/Diagnostic Data: Laboratory Results Test 08/27/24 11:59 08/27/24 07:24 08/26/24 08:00 08/24/24 06:10 POC Glucose 217 mg/dl (70-106) Hemoglobin 10.2 g/dL (13.5-17.5) Hematocrit 30.9 % (41.0-53.0) White Blood Count 9.5 10^3/uL (4.4-10.8) Red Blood Count 3.24 10^6/uL (4.5-5.90) Mean Corpuscular Volume 102.6 fL (80.0-100.0) Mean Corpuscular Hemoglobin 32.2 pg (28.0-32.0) Mean Corpuscular Hemoglobin Concent 31.4 g/dL (32.0-36.0) Red Cell Distribution Width 14.5 % (11.8-14.3) Platelet Count 364 10^3/uL (140-450) Mean Platelet Volume 7.6 fL (6.9-10.8) Neutrophils (%) (Auto) 67.1 % (37.0-80.0) Lymphocytes (%) (Auto) 18.2 % (10.0-50.0) Monocytes (%) (Auto) 13.4 % (0.0-12.0) Eosinophils (%) (Auto) 0.6 % (0.0-7.0) Basophils (%) (Auto) 0.7 % (0.0-2.0) Neutrophils # (Auto) 6.4 10 ^3/uL (1.6-8.6) Lymphocytes # (Auto) 1.7 10 ^3/uL (0.4-5.4) Monocytes # (Auto) 1.3 10 ^3/uL (0-1.3) Eosinophils # (Auto) 0.1 10 ^3/uL (0-0.8) Basophils # (Auto) 0.1 10 ^3/uL (0-0.2) Nucleated Red Blood Cells 0.1 % Sodium Level 143 mmol/L (136-145) Potassium Level 4.4 mmol/L (3.5-5.1) Chloride Level 112 mmol/L (98-107) Carbon Dioxide Level 22 mmol/L (20-31) Anion Gap 9 (5-15) Blood Urea Nitrogen 26 mg/dL (9-23) Creatinine 1.23 mg/dL (0.700-1.30) Glomerular Filtration Rate Calc 66 mL/min (>90) BUN/Creatinine Ratio 21.1 (10.0-20.0) Serum Glucose 198 mg/dL (74-106) Hemoglobin A1c 7.6 % A1C (<5.7) Calcium Level 9.5 mg/dL (8.7-10.4) Total Bilirubin 0.4 mg/dL (0.2-1.0) Aspartate Amino Transferase (AST) 21 U/L (13-40) Alanine Aminotransferase (ALT) 28 U/L (7-40) Alkaline Phosphatase 91 U/L (46-116) Total Protein 7.0 g/dL (5.7-8.2) Albumin 3.7 g/dL (3.2-4.8) Test 08/23/24 15:03 Lactic Acid Level 1.7 mmol/L (0.4-2.0) Other Laboratory Tests 08/27/24 07:24 08/26/24 08:00 Brief Hx & Hospital Course: History of Present Illness The patient is a 64-year-old male with past medical history of CVA with deficits, DM, seizures, and hypertension who presented to [facility] ED for evaluation of skin infection at G-tube site. Daughter reports she notice patient G-tube site looks rate and has been draining for the past few days, getting worse that EMS were called. Patient was seen and evaluated in the ED, laboratory data shows WBC 9.6, platelets 340, sodium 134, potassium 5.2, BUN 24, creatinine 1.08, GFR 78, glucose 253, blood pressure 154/85, heart rate 80, temperature 98.3 F, O2 saturation 98% on room air. Patient was started on IV antibiotic regimen Zosyn, please see medication orders section in the computer. On my assessment, patient denies chest pain, no headache, no dizziness, no diaphoresis, no shortness of breath, no nausea, no vomiting, no fever, no chills. Patient was admitted for further evaluation and medical management. Course of hospitalization: Patient was found to have Staphylococcus aureus, susceptible strain noted to G- tube site. Visual inspection of the skin and site reveals no drainage, erythema, or maceration. GI consultation has been placed with recommendations reviewed, no changing of G-tube required at this time. Patient white blood cell count is normal, with the patient Consults/Reason for consult Gastroenterology: Infected G-tube site Condition at Discharge: Fair Final Diagnosis/Problems List Cellulitis to G tube site, Staphylococcus aureus Secondary Diagnosis: -peptic ulcer disease -history of CVA -obesity -diabetes mellitus -seizure disorder Discharge Disposition: Home with Health Services Discharge Instruct/Medications Diet: See Comment Diet comment: Resume home GT feedings Activity: See Comment Follow Up/Referral: Follow up with PCP in 1-2 weeks Medications: Augmentin 875mg via GT bid x 7 days Protonix 40mg via GT daily x 30 days 36 Discharge Statement: "Patient was advised to return to the ER or call 911 if any headaches, dizziness, shortness of breath, chest pain, abdominal pain, bleeding, fevers, or worsening of medical condition. Patient was counseled about treatment plan, medications, possible side effects, patientverbalized understanding. All questions were answered to the best of my ability. This discharge took greater then 30 minutes in planning, reviewing documentation, counseling the patient, and discussing with other team members." ASSESSMENT ASSESSMENT Assessment Date of Service: Aug 28, 2024 Billing Provider: TOM VACA NP Common Visit Codes: [id number] DISCH DAY >30min TOM VACA NP Aug 27, 2024 12:47
--- NOTE | 2024-08-27 12:47 | DVHPN2 ---
Progress Note - Dictate Date Seen: Aug 27, 2024 Medical Necessity Reason Pt with a Central, PICC or Fol: No Subjective Patient's G-tube is functioning well No discharge or leakage around G-tube reported Patient had been given a can of Glucerna this morning because gastric residual was minimal Nurse reports currently there is some some residual over 200 mL so she is holding the 2nd can of feeding at this time vital signs Vital Sign Date Time Temp Pulse Resp B/P (MAP) Pulse Ox O2 Delivery O2 Flow Rate FiO2 08/27/24 10:12 86 146/69 08/27/24 09:00 98.9 17 93 98.9 08/26/24 20:00 Room Air* 0 21 Total Intake and Output 08/26/24 08/26/24 08/27/24 15:00 23:00 07:00 Intake Total 100 ml 100 ml 100 ml Output Total 601 ml Balance 100 ml -501 ml 100 ml medications Current Medications Medications Dose Ordered Sig/Antwon Route Start Time Stop Time Status Last Admin Dose Admin Diagnostic Test (Pha) 1 strip ACHS 08/23/24 22:00 08/27/24 11:57 1 STRIP Insulin Human Regular HS SC 08/23/24 22:00 08/26/24 22:53 4 UNITS Insulin Human Regular AC SC 08/24/24 07:00 08/27/24 12:19 6 UNITS Dextrose 50 ml UD PRN IV 08/23/24 18:00 Ondansetron HCl 4 mg Q4HP PRN IV 08/23/24 18:00 Docusate Sodium 100 mg BIDPRN PRN PO 08/23/24 18:00 Acetaminophen 650 mg Q6HP PRN PO 08/23/24 18:00 08/25/24 14:17 650 MG Nitroglycerin 0.4 mg Q5MINP PRN SL 08/23/24 19:00 Morphine Sulfate 2 mg Q30M PRN IV 08/23/24 19:00 Piperacillin Sod/ Tazobactam Sod 100 ml @ 25 mls/hr Q8HR IV 08/23/24 22:00 08/27/24 05:31 25 MLS/HR Levetiracetam 100 ml @ 400 mls/hr BID IV 08/24/24 01:34 08/27/24 10:12 400 MLS/HR Enteral Nutritional Formula 240 ml TIDWM GT 08/25/24 08:00 Hold 08/25/24 13:00 240 ML Aspirin 81 mg DAILY GT 08/25/24 10:00 08/27/24 10:11 81 MG Atorvastatin Calcium 10 mg HS GT 08/24/24 22:00 08/26/24 22:19 10 MG Carvedilol 3.125 mg Q12HR GT 08/24/24 22:00 08/27/24 10:12 3.125 MG Clopidogrel Bisulfate 75 mg DAILY GT 08/25/24 10:00 08/27/24 10:11 75 MG Acetaminophen/ Hydrocodone Bitart 1 tab Q4HP PRN GT 08/24/24 21:15 Pantoprazole Sodium 40 mg DAILY@0630 IV 08/27/24 06:30 08/27/24 05:30 40 MG Enteral Nutritional Formula 240 ml QID GT 08/26/24 18:00 08/27/24 08:25 240 ML Purified Water 100 ml Q6HR GT 08/26/24 18:00 08/27/24 06:00 100 ML objective General Appearance: Alert, Cooperative, No acute distress, Other (Oriented x2) HEENT: Atraumatic, PERRLA, EOMI, Mucous membr. moist/pink Respiratory: Clear to auscultation, Normal air movement Cardiovascular: Regular rate, Normal S1, Normal S2, No murmurs Abdominal: Normal bowel sounds, Soft, No tenderness, No hepatospenomegaly, No masses, Other (G-tube is in place.) Extremities: Other (Contractures) Skin: No rashes, No breakdown, No significant lesion Neuro: Normal tone, Other (Generalized weakness) Psych/Mental Status: Mental status NL, Mood NL laboratory and microbiology Laboratory Tests 08/27/24 07:24 08/26/24 08:00 Test 08/26/24 08:00 Range/Units Serum Glucose 198 H 74-106 mg/dL Problems(with codes): (1) Skin infection at gastrostomy tube site (2) Generalized weakness (3) Gastrostomy malfunction Prognosis Plan Start Reglan 5 mg IV q.8 hours Continue tube feedings as longest gastric residual is less than 200 mL Supportive care Dietary Evaluation Review Comments: Increase Glucerna to 5 x 240ml (72g protein 1441 kcal), supporting pt's needs at 91% pro and 73% kcal. Expected Outcomes/Goals: meet 75% of pt's needs, gradual weight loss, Plan discussed with: Other (Nurse) SHER SAINZ MD Aug 27, 2024 12:47
[2024-08-27 12:48] VITALS: BP 122/71; PULSE 17; RESP 17; TEMP 99.4; O2SAT 96
[2024-08-27] MEDS: METOCLOPRAMIDE HCL 5MG/ml INJ 2ml VIAL IV SCH (14:16)
== END 2024-08-27 16:30 | disposition home or self-care (01) | DRG 252 ==
LOC: EDBD 12:29 → ER 12:43 → OVERFLOW 18:58 → EAST 23:58
PROVIDERS: ADMIT Nurse Practitioner Family; ATTEND Nurse Practitioner Acute Care
DX: K94.22 Gastrostomy infection (principal); L03.311 Cellulitis of abdominal wall; E11.9 Type 2 diabetes mellitus without complications; G40.909 Epilepsy, unspecified, not intractable, without status epilepticus; E66.9 Obesity, unspecified; A49.01 Methicillin susceptible Staphylococcus aureus infection, unspecified site; I10 Essential (primary) hypertension; K27.9 Peptic ulcer, site unspecified, unspecified as acute or chronic, without hemorrhage or perforation; Z86.73 Personal history of transient ischemic attack (TIA), and cerebral infarction without residual deficits; Z68.34 Body mass index [BMI] 34.0-34.9, adult; Y84.8 Other medical procedures as the cause of abnormal reaction of the patient, or of later complication, without mention of misadventure at the time of the procedure; Y92.89 Other specified places as the place of occurrence of the external cause
CPT/HCPCS: 36415; 80048; 80053; 82962; 83036; 83605; 85014; 85018; 85025; 87040; 87077; 87186; 87205; G0378; J1815; J2470; J2543